=== PATIENT | female | born 2000 | race African-American/Black ===

== ENCOUNTER 2021-04-11 08:51 | Emergency (ER) | payer MEDICAID | END 2021-04-11 10:19 | disposition home or self-care (01) | LOC: ERS 08:51 | DX: L02.215 Cutaneous abscess of perineum (principal); I10 Essential (primary) hypertension; Z79.899 Other long term (current) drug therapy | CPT/HCPCS: 56405; 87070; 87076; 87077; 87186; 87205 ==

== ENCOUNTER 2021-06-10 14:01 | Emergency (ER) | payer MEDICAID | END 2021-06-10 14:51 | disposition left against medical advice (07) | LOC: ERS 14:01 | DX: Z53.21 Procedure and treatment not carried out due to patient leaving prior to being seen by health care provider (principal) ==